=== PATIENT | male | born 1940 | race Asian ===

== ENCOUNTER 2021-09-28 06:45 | Day surgery (SDC) | payer OTHER ==
[~2021-09-28] VITALS: Ht 175.3 cm; Wt 77.1 kg
[2021-09-28] MEDS ORDERED: fentaNYL citrate 0.05 MG/ML VIAL ONE (08:36)
[2021-09-28] MEDS ORDERED: MIDAZOLAM 5 MG/5 ML VIAL ONE (08:37)
[2021-09-28] MEDS ORDERED: fentaNYL citrate 0.05 MG/ML VIAL IVP ONE (09:50)
== END 2021-09-28 09:35 | disposition home or self-care (01) ==
LOC: MDS 06:45 → MMU 06:45 → MDS 09:35
PROVIDERS: ATTEND Internal Medicine Gastroenterology
DX: Z12.11 Encounter for screening for malignant neoplasm of colon (principal); Z86.010 Personal history of colon polyps; Z20.822 Contact with and (suspected) exposure to COVID-19; Z79.899 Other long term (current) drug therapy
CPT/HCPCS: 45378; 87426; J3010; J2250